=== PATIENT | female | born 1990 | race Caucasian/White ===

== ENCOUNTER 2017-02-15 06:47 | Inpatient (IN) | payer OTHER ==
[~2017-02-15] VITALS: Ht 160 cm; Wt 66.5 kg
[2017-02-15 06:51] VITALS: Ht 160 cm; Wt 66.5 kg
[2017-02-15] MEDS ORDERED: FERR325C PO (07:33)
[2017-02-15] MEDS ORDERED: PRENAT PO (07:33)
[2017-02-15] MEDS ORDERED: LACTATED RINGER'S 1,000 ML IV SCH ×2 (08:26→08:48)
[2017-02-15] MEDS ORDERED: CARBOPROST 250 MCG INJ IM PRN ×2 (08:30→19:00)
[2017-02-15] MEDS ORDERED: OXYTOCIN 30 UNITS/LR 500 ML IV PRN ×3 (08:30→19:00)
[2017-02-15] MEDS ORDERED: MISOPROSTOL 200 MCG TAB PR PRN ×2 (08:30→19:00)
[2017-02-15] MEDS ORDERED: LIDOCAINE 1% (MPF) 30 ML INJ INJ PRN (08:30)
[2017-02-15] MEDS ORDERED: LACTATED RINGER'S 1,000 ML IV PRN (08:30)
[2017-02-15] MEDS ORDERED: METHYLERGONOVINE 0.2 MG INJ IM PRN ×2 (08:30→19:00)
[2017-02-15] MEDS ORDERED: DEXTROSE 5%-LR 1,000 ML IV SCH (08:48)
--- NOTE | 2017-02-15 08:53 | HP ---
Date/Time of Note Date/Time of Note DATE: 02/15/17 TIME: 08:46 OB - History Hx of Present Free Text/Dictation Pt is a 26yo G1 at 37+0 w/GDMA1 presented to OB triage with c/o painful UCs since 429. Pt reports normal FM, denies LOF although reports vaginal bleeding. Pt c/o pain and desires epidural now. BPs in triage 139-141/88-92. Pt denies FONTANA, visual changes or RUQ pain. Of note, pt was scheduled for a C/S if not yet in labor between 02/19- due to inguinal hernia which is currently asymptomatic. : 1 Care: Good Care Obstetrical Complications: Gestational Diabetes (A1) Medical Complications: Other (R inguinal hernia, asymptomatic) Past Family/Social History * Past Medical, Surgical, Family and Obstetric Histories reviewed from chart. Blood Type: B+ Rubella: immune RPR/VDRL: Negative GBS Status: Unknown HBsAG: Negative OB Admission Exam Vital Signs Vital Signs 97.8 139/88 69 18 Physical Exam HEENT: WNL Heart: Rhythm Normal Lungs: Clear Abdomen: WNL (gravid) Cervical Dilatation: 3cm Effacement: Other (90%) Station: -2 Membranes: Intact Heart Rate: 140's Accelerations: Accelerations Present Decelerations: No Decelerations Varibility: Moderate Contractions on Admission: < 5 Minutes Apart Intensity: Firm OB Assessment/Plan Other Assessment: Early labor, early term Reactive FHT Plan: Expectant Management Other plan: 1)Labor: Will admit for expectant management and pain control. Given pt 37wks GA , will not augment labor at this time. Admit labs ordered. 2)FWB: Reactive NST. monitoring per protocol 3)ID: Afebrile. GBS unknown- [facility] labs to be contacted to obtain result. If unable to obtain result, will follow risk-based protocol 4)Pain: Pt desires epidural. Anesthesiologist to be contacted regarding request. 5)GDMA1: Random FSBG on admission. Follow GDM protocol. 6)Mild range BP x1: Suspect elevated BP 2/2 pain, however will proceed with PreE workup. Straight catheter for urine specimen if blood present in clean catch specimen. Plan d/w pt. Questions answered to her satisfaction BERTHA WISE MD February 15, 2017 08:53
[2017-02-15 09:22] LABS: ADD SCAN DIFF NO
[2017-02-15 09:25] VITALS: BP 155/99; PULSE 54; RESP 18
[2017-02-15 09:35] LABS: BASOPHILS % 0.2 % (0.0-2.0); EOSINOPHILS % 0.2 % (0.0-7.0); HEMATOCRIT 42.7 % (37.0-47.0); HEMOGLOBIN 14.8 g/dl (12.0-16.0); LYMPHOCYTES # 2.3 10^3/ul (0.8-2.9); LYMPHOCYTES % 18.2 % (15.0-51.0); MEAN CORPUSCULAR HEMOGLOBIN 31.8 pg (29.0-33.0); MEAN CORPUSCULAR HGB CONC 34.7 g/dl (32.0-37.0); MEAN CORPUSCULAR VOLUME 91.6 fl (82.0-101.0); MEAN PLATELET VOLUME 10.8 fl (7.4-10.4); MONOCYTE # 0.8 10^3/ul (0.3-0.9); MONOCYTES % 5.9 % (0.0-11.0); NEUTROPHIL # 9.5 10^3/ul (1.6-7.5); NEUTROPHILS % 74.5 % (39.0-77.0); PLATELET COUNT 213 10^3/UL (140-415); RED BLOOD COUNT 4.66 10^6/ul (4.20-5.40); RED CELL DISTRIBUTION WIDTH 12.5 % (11.5-14.5); WHITE BLOOD COUNT 12.8 10^3/ul (4.8-10.8)
[2017-02-15 09:40] LABS: ALBUMIN 3.6 g/dl (3.3-4.9); POTASSIUM 3.7 mmol/L (3.5-5.1)
[2017-02-15 09:42] LABS: CREATININE 0.42 mg/dl (0.44-1.00)
[2017-02-15 09:43] LABS: ALBUMIN/GLOBULIN RATIO 0.87; BILIRUBIN,INDIRECT 0.4 mg/dl (0-1.1); BILIRUBIN,TOTAL 0.4 mg/dl (0.2-1.3); TOTAL PROTEIN 7.7 g/dl (6.1-8.1); URIC ACID 4.4 mg/dl (3.1-7.9)
[2017-02-15 09:44] LABS: CALCIUM 9.1 mg/dl (8.4-10.2)
[2017-02-15] MEDS ORDERED: FENTAnyl 2MCG/ML-ROPIV 0.2% 100 ML ONE (09:45)
[2017-02-15 10:00] LABS: INR 0.94; PROTIME 12.6 Sec (12.2-14.2)
[2017-02-15 10:01] LABS: PARTIAL THROMBOPLASTIN TIME 28.1 Sec (25.0-35.0)
[2017-02-15] MEDS ORDERED: TERBUTALINE 1 MG/ML INJ SC ONE (13:30)
[2017-02-15 13:37] LABS: ADD UMIC NO; URINE BILIRUBIN (Dip) NEGATIVE (NEGATIVE); URINE BLOOD (Dip) NEGATIVE (NEGATIVE); URINE COLOR LT. YELLOW (YELLOW); URINE GLUCOSE (Dip) NEGATIVE (NEGATIVE); URINE KETONES (Dip) 15 (NEGATIVE); URINE LEUKOCYTE ESTERASE (Dip) NEGATIVE (NEGATIVE); URINE NITRITE (Dip) NEGATIVE (NEGATIVE); URINE TOTAL PROTEIN (Dip) NEGATIVE (NEGATIVE); URINE UROBILINOGEN (Dip) 0.2 E.U./dL (0.1-1.0)
[2017-02-15] MEDS ORDERED: OXYTOCIN 30 UNITS/LR 500 ML IV SCH (14:00)
[2017-02-15] MEDS ORDERED: IBUPROFEN 600 MG TAB PO PRN (14:00)
[2017-02-15] MEDS ORDERED: FENTAnyl 2MCG/ML-ROPIV 0.2% 100 ML BAG EPI SCH (15:30)
[2017-02-15] MEDS ORDERED: NALOXONE (0.4 MG/ML) INJ IV PRN (15:30)
--- NOTE | 2017-02-15 15:57 | QN ---
Documentation Comment Laborist (late entry from 1300 2/2 patient care) Called to pt room around 1300 2/2 decel. On entrance to room, pt on left side in trendelenberg and receiving IVF bolus. FHR in the 60s. SVE performed /- 1. Attempted to rupture membranes with amnio hook after obtaining consent from patient however little fluid resulted. An FSE was applied with large gush of clear fluid. FHR returned to the 110s and then back to baseline 130s. In total, decel x8 min to 60s. No tachysystole appreciated on toco. Pt was given a dose of Terbutaline and FHR returned to baseline 130s, mod variability, +accels and no decels. On toco, UCs q3 min. BP 113/53, pulse 66 prior to Terbutaline. On review of FHT, non-repetitive variables and late decels were noted in the 30 min prior to 8 min decel. Given reassuring FHT at this point, will continue to expectantly manage. Pt comfortable w/epidural. Plan d/w pt and her family. BERTHA WISE MD February 15, 2017 15:57
--- NOTE | 2017-02-15 18:38 | LDN ---
Date/Time of Note Date/Time of Note DATE: 02/15/17 TIME: 18:33 Delivery Summary Pt pushed under epidural anesthesia to a liveborn vigorous male infant with Apgars of 9/9. Easy delivery of the head from SCOUT followed by R anterior shoulder, L posterior shoulder and the remainder of the body. placed on mother's abdomen, bulb suctioned and delayed cord clamping continued x2 minutes. Standard IV Pitocin was administered. The cord was doubly clamped and cut. An intact 3VC placenta delivered shortly thereafter. Firm fundus noted on fundal massage. The vagina and perineum were examined and a 2nd degree perineal laceration was noted and subsequently repaired in the usual fashion using 3-0 Vicryl suture. Mother and doing well following delivery and repair. EBL 200ml Weeks of Gestation 37+5 Placenta Delivered: Spontaneously Meconium: none Episiotomy: No Perineal laceration: 2 Anesthesia type: Epidural Estimated blood loss: 200 Sponge & Needle done & correct: Yes All needle counts correct: Yes Any foreign bodies felt in the: No Problems: Infant Delivery Information Sex Sex: male Apgars 1 Minute: 9 5 Minute: 9 Suctioning Nose & mouth suctioned at [place]: No Delee suction performed: No Umbilical Cord Umbilical cord with: 3 Vessels Cord presentations: no nuchal cord Cord Blood was obtained: Yes Mother & Baby Disposition Disposition Mom & Baby to Maternity; Good: Yes Baby to NICU: No BERTHA WISE MD February 15, 2017 18:37
[2017-02-15] MEDS ORDERED: ONDANSETRON 4 MG INJ IV PRN (19:00)
[2017-02-15] MEDS ORDERED: ACETAMINOPHEN 325 MG TAB PO PRN (19:00)
[2017-02-15] MEDS ORDERED: LANOLIN 7 GM TUBE TOP PRN (19:00)
[2017-02-15] MEDS ORDERED: DIPHENHYDRAMINE 50 MG INJ IV PRN (19:00)
[2017-02-15] MEDS ORDERED: DIBUCAINE 1% 30 GM OINT PR PRN (19:00)
[2017-02-15] MEDS ORDERED: SENNA/DOCUSATE NA (8.6MG/50MG) TAB PO PRN (19:00)
[2017-02-15] MEDS ORDERED: BENZOCAINE 20% 56 ML SPRAY TOP PRN (19:00)
[2017-02-15] MEDS: IBUPROFEN 600 MG TAB PO SCH (19:43)
[2017-02-15 20:45] VITALS: BP 125/72; PULSE 71; RESP 18
[2017-02-15] MEDS: LACTATED RINGER'S 1,000 ML IV* SCH (23:01)
[2017-02-16] VITALS: BP 120/71; PULSE 60; RESP 18
[2017-02-16] MEDS: IBUPROFEN 600 MG TAB PO SCH ×5 (00:48→23:48)
[2017-02-16] MEDS: LACTATED RINGER'S 1,000 ML IV* SCH ×2 (02:38→21:07)
[2017-02-16 04:30] VITALS: BP 117/69; PULSE 68; RESP 18
[2017-02-16 08:00] VITALS: BP 97/58; PULSE 76; RESP 16
[2017-02-16 08:00] LABS: ADD SCAN DIFF NO
[2017-02-16 08:08] LABS: BASOPHILS % 0.3 % (0.0-2.0); EOSINOPHILS # 0.1 10^3/ul (0.0-0.5); EOSINOPHILS % 0.5 % (0.0-7.0); HEMATOCRIT 39.9 % (37.0-47.0); HEMOGLOBIN 13.4 g/dl (12.0-16.0); LYMPHOCYTES # 1.8 10^3/ul (0.8-2.9); LYMPHOCYTES % 14.2 % (15.0-51.0); MEAN CORPUSCULAR HEMOGLOBIN 31.8 pg (29.0-33.0); MEAN CORPUSCULAR HGB CONC 33.6 g/dl (32.0-37.0); MEAN CORPUSCULAR VOLUME 94.5 fl (82.0-101.0); MEAN PLATELET VOLUME 10.6 fl (7.4-10.4); MONOCYTE # 0.9 10^3/ul (0.3-0.9); MONOCYTES % 6.9 % (0.0-11.0); NEUTROPHIL # 9.7 10^3/ul (1.6-7.5); NEUTROPHILS % 77.2 % (39.0-77.0); PLATELET COUNT 200 10^3/UL (140-415); RED BLOOD COUNT 4.22 10^6/ul (4.20-5.40); RED CELL DISTRIBUTION WIDTH 12.8 % (11.5-14.5); WHITE BLOOD COUNT 12.6 10^3/ul (4.8-10.8)
--- NOTE | 2017-02-16 15:34 | PN ---
Date/Time of Note Date/Time of Note DATE: 02/16/17 TIME: 15:32 OB Subjective Subjective Subjective day 1 no complaints. uterus contracted. lochia normal extremities neg OB Objective HEENT: WNL Heart: Rhythm Normal Lungs: Clear, Equal Abdomen: WNL Extremities: Normal Reflexes: Normal JOSUE JEONG MD February 16, 2017 15:34
[2017-02-16 16:10] VITALS: BP 126/72; PULSE 63; RESP 14
[2017-02-16 19:30] VITALS: BP 116/64; PULSE 73; RESP 18
[2017-02-17 03:45] VITALS: BP 121/92; PULSE 81; RESP 17
[2017-02-17] MEDS: IBUPROFEN 600 MG TAB PO SCH (05:47)
[2017-02-17 07:45] VITALS: BP 108/64; PULSE 80; RESP 18
[2017-02-17] MEDS ORDERED: DIPHTH/TET/ACEL PERTUSS (ADULT) 0.5 ML VIAL IM* ONE (09:00)
--- NOTE | 2017-02-17 09:36 | PD.PPDC ---
DESIGN PROJECT MANAGER Discharge Instruction Condition Patient Condition: Good Diet Diet: Resume Regular Diet Activity/Restrictions Activity: Normal Activity May Shower Restrictions: No Exercising No Lifting No Driving No Sexual Activity Nothing in the Vagina No [place] No Tampons, douche Follow-up Follow-up with Physician: 6, Week/Weeks Return to clinic for SENIOR PRINCIPAL Instructions: Fever greater than 101 Chills Worsening abdominal pain Excessive Vaginal Bleeding More than 2 pads per hour Unable to tolerate diet OB Instructions: Breast Tenderness Depression Blurried Vision Headache Surgical Instructions: Incisional Drainage Incisional Redness JOSUE JEONG MD February 17, 2017 09:36
--- NOTE | 2017-02-17 09:42 | DS ---
Date/Time of Note Date/Time of Note DATE: 02/17/17 TIME: 09:37 Discharge Summary Admission/Discharge Info Admit Date/Time February 15, 2017 at 08:29 Discharge Date/Time feb 17 2017 Final Diagnosis spontaneous vaginal delivery term Patient Condition: Good Procedures vaginal delivery, laceration repair Hx of Present Illness term in labor patient was schedule for c/s due to tocophobia, CAME IN LABOR ACTIVELY AND WITH AN EPIDURAL SHE DELIVERED SPONTANEOUSLY WITHOUT COMPLICATIONS Hospital Course uneventful Home Meds Reported Medications Ferrous Sulfate (Iron) 325 Mg Capsule.er, 325 MG PO DAILY, CAP 02/15/17 Multivit/Min/Fol Ac/Iron/Pren* ( S*) 1 Tab Tab, 1 TAB PO DAILY, TAB 02/15/17 Pending Labs Laboratory Tests Test 02/17/17 08:05 Bedside Glucose 90mg/dL (70-220) JOSUE JEONG MD February 17, 2017 09:42
== END 2017-02-17 12:30 | disposition home or self-care (01) | DRG 775 ==
LOC: OBT 06:47 → L-D 06:48 → OBT 08:25 → L-D 08:29 → PP1 20:48
PROVIDERS: ADMIT Obstetrics & Gynecology; ATTEND Obstetrics & Gynecology
PROC: 10E0XZZ Delivery of Products of Conception, External Approach (ICD-10-PCS; principal; 2017-02-15)
PROC: 0KQM0ZZ Repair Perineum Muscle, Open Approach (ICD-10-PCS; 2017-02-15)
PROC: 10H073Z Insertion of Monitoring Electrode into Products of Conception, Via Natural or Artificial Opening (ICD-10-PCS; 2017-02-15)
PROC: 4A1H74Z Monitoring of Products of Conception, Cardiac Electrical Activity, Via Natural or Artificial Opening (ICD-10-PCS; 2017-02-15)
PROC: 4A1HX4Z Monitoring of Products of Conception, Cardiac Electrical Activity, External Approach (ICD-10-PCS; 2017-02-15)
PROC: 3E0234Z Introduction of Serum, Toxoid and Vaccine into Muscle, Percutaneous Approach (ICD-10-PCS; 2017-02-17)
DX: O24.420 Gestational diabetes mellitus in childbirth, diet controlled (principal); O75.89 Other specified complications of labor and delivery; K40.90 Unilateral inguinal hernia, without obstruction or gangrene, not specified as recurrent; O76 Abnormality in fetal heart rate and rhythm complicating labor and delivery; O70.1 Second degree perineal laceration during delivery; Z3A.37 37 weeks gestation of pregnancy; Z23 Encounter for immunization; Z37.0 Single live birth
CPT/HCPCS: 62319; 80053; 81003; 82962; 84560; 85025; 85362; 85384; 85610; 85730; 86592; 86900; 86901; 87340; 90715; G0463; J2590; J3010; J7120; J7121